=== PATIENT | female | born 1970 | race Caucasian/White ===

== ENCOUNTER 2023-04-06 13:13 | Inpatient (IN) | payer MEDICAID, OTHER ==
[~2023-04-06] VITALS: Ht 162.6 cm; Wt 98.9 kg
[~2023-04-06 13:13] MED LIST: METO25XL PO; NIFE-64 PO; PALI6TAB15 PO
[2023-04-06] MEDS ORDERED: LORazepam 2 MG/ML VIAL IM ONE (13:45)
[2023-04-06] MEDS ORDERED: HALOPERIDOL LACTATE 5 MG/ML VIAL IM ONE (13:45)
[2023-04-06] MEDS ORDERED: DiphenhydrAMINE HCL 50 MG/ML VIAL IM ONE (13:45)
[2023-04-06] MEDS ORDERED: METO-408 PO (13:48)
[2023-04-06] MEDS ORDERED: NIFE-129 PO (13:48)
[2023-04-06 14:00] LABS: BASOPHILS % (AUTO) 0.8 % (0.0-2.0); EOSINOPHILS % (AUTO) 3.1 % (1.0-6.0); HEMATOCRIT 36.9 % (36-46); HEMOGLOBIN 12.3 g/dL (12.0-16.0); LYMPHOCYTES # (AUTO) 3.3 K/uL (1.0-4.8); LYMPHOCYTES % (AUTO) 30.8 % (22.0-44.0); MEAN CORPUSCULAR HEMOGLOBIN 29.6 pg (26.0-34.0); MEAN CORPUSCULAR HGB CONC 33.2 G/dL (31.0-37.0); MEAN CORPUSCULAR VOLUME 89 fL (80-100); MONOCYTES # (AUTO) 0.7 K/uL (0.1-1.0); MONOCYTES % (AUTO) 6.3 % (2.0-9.0); NEUTROPHILS # (AUTO) 6.2 K/uL (1.8-7.7); PLATELET COUNT (AUTO) 363 K/uL (150-450); RED BLOOD CELL COUNT(AUTO) 4.14 MIL/uL (4.00-5.20); RED CELL DISTRIBUTION WIDTH 13.4 % (11.5-14.5)
[2023-04-06 14:09] LABS: CALCIUM, TOTAL 8.8 mg/dL (8.8-10.5); CREATININE 1.28 mg/dL (0.60-1.30); POTASSIUM 3.2 mmol/L (3.5-5.1)
[2023-04-06 14:15] LABS: ALBUMIN 3.4 g/dL (3.4-5.0); BILIRUBIN,TOTAL 0.3 mg/dL (0.1-1.0); TOTAL PROTEIN, SERUM 7.6 g/dL (6.4-8.2)
[2023-04-06 15:10] LABS: COVID AG,FIA SOURCE NASOPHARYNGEAL
[2023-04-06] MEDS ORDERED: HALOPERIDOL 5 MG TABLET PO PRN (15:45)
[2023-04-06 22:11] VITALS: BP 187/99; PULSE 77; RESP 18; TEMP 97.7; O2SAT 94
[2023-04-06] MEDS ORDERED: NIFEdipine 60 MG ER TABLET PO ONE (22:15)
[2023-04-06] MEDS ORDERED: METOPROLOL SUCCINATE 25 MG ER TABLET PO ONE (22:15)
[2023-04-07] MEDS ORDERED: POTASSIUM CHLORIDE 20 MEQ ER TABLET PO ONE (06:00)
[2023-04-07] MEDS ORDERED: MAG HYDROX/AL HYDROX/SIMETH ES 30 ML SUSPENSION UDCUP PO PRN (06:00)
[2023-04-07] MEDS ORDERED: DOCUSATE SODIUM 100 MG CAPSULE PO PRN (06:00)
[2023-04-07] MEDS ORDERED: ONDANSETRON HCL 4 MG TABLET PO PRN (06:00)
[2023-04-07] MEDS ORDERED: ACETAMINOPHEN 325 MG TABLET PO PRN (06:00)
[2023-04-07] MEDS ORDERED: IBUPROFEN 600 MG TABLET PO PRN (06:00)
[2023-04-07] MEDS ORDERED: BENZOCAINE/MENTHOL LOZENGE PO PRN (06:00)
[2023-04-07] MEDS ORDERED: BACITRACIN 28 GM OINTMENT TP PRN (06:00)
[2023-04-07] MEDS ORDERED: ALBUTEROL SULFATE HFA 90 MCG/PUFF 8 GM INHALER IH PRN (06:00)
[2023-04-07] MEDS ORDERED: LOPERAMIDE HCL 2 MG CAPSULE PO PRN (06:00)
[2023-04-07] MEDS ORDERED: OMEPRAZOLE 20 MG CAPSULE PO PRN (06:00)
[2023-04-07] MEDS ORDERED: MAGNESIUM HYDROXIDE SUSPENSION 30 ML UDCUP PO PRN (06:00)
[2023-04-07] MEDS ORDERED: CloNIDine HCL 0.1 MG TABLET PO PRN (06:00)
[2023-04-07] MEDS ORDERED: PETROLATUM,WHITE 28 GM JELLY TP PRN (06:00)
[2023-04-07 06:24] VITALS: BP 156/72; PULSE 85; RESP 18; TEMP 97.8; O2SAT 15
[2023-04-07 08:19] VITALS: RESP 16
[2023-04-07 10:31] VITALS: BP 136/82; RESP 17
[2023-04-07] MEDS: NIFEdipine 60 MG ER TABLET PO SCH (10:32)
[2023-04-07] MEDS: METOPROLOL SUCCINATE 25 MG ER TABLET PO SCH (10:32)
[2023-04-07 20:03] VITALS: RESP 17
[2023-04-07] MEDS: RisperiDONE 2 MG TABLET PO SCH (21:00)
[2023-04-08] MEDS: RisperiDONE 2 MG TABLET PO SCH ×2 (07:55→20:38)
[2023-04-08] MEDS: NIFEdipine 60 MG ER TABLET PO SCH (07:55)
[2023-04-08] MEDS: METOPROLOL SUCCINATE 25 MG ER TABLET PO SCH (07:55)
[2023-04-08 08:33] VITALS: BP 161/75; PULSE 85; RESP 18; TEMP 98.6; O2SAT 98
[2023-04-08] MEDS ORDERED: LORazepam 2 MG/ML VIAL ONE (09:26)
[2023-04-08] MEDS ORDERED: HALOPERIDOL LACTATE 5 MG/ML VIAL ONE (09:27)
[2023-04-08] MEDS ORDERED: DiphenhydrAMINE HCL 50 MG/ML VIAL IM ONE (09:30)
[2023-04-08] MEDS ORDERED: HALOPERIDOL LACTATE 5 MG/ML VIAL IM ONE (09:30)
[2023-04-08] MEDS ORDERED: LORazepam 2 MG/ML VIAL IM ONE (09:30)
[2023-04-08 20:49] VITALS: BP 112/77; PULSE 93; RESP 19; TEMP 98; O2SAT 96
[2023-04-09] MEDS: METOPROLOL SUCCINATE 25 MG ER TABLET PO SCH (08:28)
[2023-04-09] MEDS: NIFEdipine 60 MG ER TABLET PO SCH (08:28)
[2023-04-09] MEDS: RisperiDONE 2 MG TABLET PO SCH ×2 (08:28→20:19)
[2023-04-09 08:50] VITALS: BP 122/80; PULSE 76; RESP 16; TEMP 97.8; O2SAT 98
[2023-04-09] MEDS ORDERED: DiphenhydrAMINE HCL 25 MG CAPSULE PO PRN (12:15)
[2023-04-09] MEDS: ESCITALOPRAM OXALATE 10 MG TABLET PO SCH (12:15)
[2023-04-09] MEDS ORDERED: HALOPERIDOL LACTATE 5 MG/ML VIAL ONE (16:01)
[2023-04-09] MEDS ORDERED: DiphenhydrAMINE HCL 50 MG/ML VIAL ONE (16:01)
[2023-04-09] MEDS ORDERED: LORazepam 2 MG/ML VIAL ONE (16:01)
[2023-04-09] MEDS ORDERED: LORazepam 2 MG/ML VIAL IM ONE (16:15)
[2023-04-09] MEDS ORDERED: DiphenhydrAMINE HCL 50 MG/ML VIAL IM ONE (16:15)
[2023-04-09] MEDS ORDERED: HALOPERIDOL LACTATE 5 MG/ML VIAL IM ONE (16:15)
[2023-04-09 20:03] VITALS: RESP 17
[2023-04-09] MEDS: ZOLPIDEM TARTRATE 10 MG TABLET PO PRN (20:19)
[2023-04-10 08:08] VITALS: BP 158/104; PULSE 86; RESP 18; TEMP 97.6; O2SAT 98
[2023-04-10] MEDS: ESCITALOPRAM OXALATE 10 MG TABLET PO SCH (08:08)
[2023-04-10] MEDS: METOPROLOL SUCCINATE 25 MG ER TABLET PO SCH (08:08)
[2023-04-10] MEDS: NIFEdipine 60 MG ER TABLET PO SCH (08:08)
[2023-04-10] MEDS: RisperiDONE 2 MG TABLET PO SCH ×2 (08:08→20:14)
[2023-04-10] MEDS: ZOLPIDEM TARTRATE 10 MG TABLET PO PRN (20:14)
[2023-04-10 21:15] VITALS: BP 132/86; PULSE 80; RESP 16; TEMP 97.3; O2SAT 96
[2023-04-11 08:12] VITALS: BP 141/99; PULSE 96; RESP 17; TEMP 97.3; O2SAT 96
[2023-04-11] MEDS: NIFEdipine 60 MG ER TABLET PO SCH (08:13)
[2023-04-11] MEDS: RisperiDONE 2 MG TABLET PO SCH ×2 (08:13→20:07)
[2023-04-11] MEDS: ESCITALOPRAM OXALATE 10 MG TABLET PO SCH (08:13)
[2023-04-11] MEDS: METOPROLOL SUCCINATE 25 MG ER TABLET PO SCH (08:13)
[2023-04-11] MEDS ORDERED: DiphenhydrAMINE HCL 25 MG CAPSULE PO PRN (10:45)
[2023-04-11] MEDS: ZOLPIDEM TARTRATE 10 MG TABLET PO PRN (20:12)
[2023-04-11 20:22] VITALS: BP 160/86; PULSE 78; RESP 16; TEMP 97.7; O2SAT 98
[2023-04-12] MEDS: NIFEdipine 60 MG ER TABLET PO SCH (08:13)
[2023-04-12] MEDS: RisperiDONE 2 MG TABLET PO SCH ×2 (08:13→20:04)
[2023-04-12] MEDS: ESCITALOPRAM OXALATE 10 MG TABLET PO SCH (08:13)
[2023-04-12] MEDS: METOPROLOL SUCCINATE 25 MG ER TABLET PO SCH (08:13)
[2023-04-12 08:21] VITALS: BP 149/81; PULSE 77; RESP 16; TEMP 98.6; O2SAT 96
[2023-04-12 16:48] VITALS: BP 164/98; PULSE 70; RESP 18; TEMP 96.3; O2SAT 98
[2023-04-12 18:32] VITALS: RESP 18; O2SAT 98
[2023-04-12 20:41] VITALS: BP 164/94; PULSE 73; RESP 19; TEMP 97.8; O2SAT 98
[2023-04-12] MEDS: ZOLPIDEM TARTRATE 10 MG TABLET PO PRN (23:00)
[2023-04-13] MEDS: ESCITALOPRAM OXALATE 10 MG TABLET PO SCH (08:16)
[2023-04-13] MEDS: RisperiDONE 2 MG TABLET PO SCH ×2 (08:17→20:23)
[2023-04-13] MEDS: METOPROLOL SUCCINATE 25 MG ER TABLET PO SCH (08:17)
[2023-04-13] MEDS: NIFEdipine 60 MG ER TABLET PO SCH (08:18)
[2023-04-13 08:35] VITALS: BP 135/82; PULSE 82; RESP 16; TEMP 97.9; O2SAT 97
[2023-04-13] MEDS: LORazepam 2 MG TABLET PO PRN ×2 (14:57→20:24)
[2023-04-13] MEDS: ZOLPIDEM TARTRATE 10 MG TABLET PO PRN (20:23)
[2023-04-13 23:00] VITALS: RESP 18; TEMP 97.9
[2023-04-14] MEDS: LORazepam 2 MG TABLET PO PRN (08:27)
[2023-04-14] MEDS: METOPROLOL SUCCINATE 25 MG ER TABLET PO SCH (08:27)
[2023-04-14] MEDS: RisperiDONE 2 MG TABLET PO SCH ×2 (08:27→20:04)
[2023-04-14] MEDS: NIFEdipine 60 MG ER TABLET PO SCH (08:27)
[2023-04-14] MEDS: ESCITALOPRAM OXALATE 10 MG TABLET PO SCH (08:27)
[2023-04-14 08:36] VITALS: BP 136/70; PULSE 76; RESP 16; TEMP 97.9; O2SAT 95
[2023-04-14] MEDS: ZOLPIDEM TARTRATE 10 MG TABLET PO PRN (20:20)
[2023-04-14 20:33] VITALS: BP 141/84; PULSE 100; RESP 18; TEMP 98
[2023-04-15] MEDS: NIFEdipine 60 MG ER TABLET PO SCH (08:13)
[2023-04-15] MEDS: METOPROLOL SUCCINATE 25 MG ER TABLET PO SCH (08:13)
[2023-04-15] MEDS: ESCITALOPRAM OXALATE 10 MG TABLET PO SCH (08:13)
[2023-04-15] MEDS: RisperiDONE 2 MG TABLET PO SCH ×2 (08:13→20:05)
[2023-04-15 08:25] VITALS: BP 117/68; PULSE 80; RESP 16; TEMP 97.9; O2SAT 95
[2023-04-15 20:03] VITALS: BP 144/81; PULSE 97; RESP 17; TEMP 97.5
[2023-04-15] MEDS: ZOLPIDEM TARTRATE 10 MG TABLET PO PRN (20:05)
[2023-04-16] MEDS: RisperiDONE 2 MG TABLET PO SCH (08:11)
[2023-04-16] MEDS: METOPROLOL SUCCINATE 25 MG ER TABLET PO SCH (08:11)
[2023-04-16] MEDS: ESCITALOPRAM OXALATE 10 MG TABLET PO SCH (08:11)
[2023-04-16] MEDS: NIFEdipine 60 MG ER TABLET PO SCH (08:16)
[2023-04-16 08:23] VITALS: BP 129/64; PULSE 78; RESP 16; TEMP 97.5; O2SAT 97
[2023-04-16] MEDS ORDERED: METO25XL PO (14:28)
[2023-04-16] MEDS ORDERED: ESCI-8 PO (14:28)
[2023-04-16] MEDS ORDERED: NIFE-129 PO (14:28)
[2023-04-16] MEDS ORDERED: RISP2TAB86 PO (14:28)
== END 2023-04-16 16:28 | disposition home or self-care (01) | DRG 750 ==
LOC: EMS 13:17 → B3A 18:41
PROVIDERS: ADMIT Psychiatry & Neurology Child & Adolescent Psychiatry; ATTEND Psychiatry & Neurology Child & Adolescent Psychiatry
DX: F25.9 Schizoaffective disorder, unspecified (principal); R45.850 Homicidal ideations; R45.851 Suicidal ideations; E66.9 Obesity, unspecified; F31.9 Bipolar disorder, unspecified; F41.9 Anxiety disorder, unspecified; Z20.822 Contact with and (suspected) exposure to COVID-19; G47.00 Insomnia, unspecified; G89.29 Other chronic pain; I10 Essential (primary) hypertension; F12.90 Cannabis use, unspecified, uncomplicated; K59.00 Constipation, unspecified; F17.210 Nicotine dependence, cigarettes, uncomplicated; Z91.148 Patient's other noncompliance with medication regimen for other reason; Z88.8 Allergy status to other drugs, medicaments and biological substances
CPT/HCPCS: 80053; 84132; 85025; 99291; G0480; J1200; J1630; J2060

== ENCOUNTER 2024-01-13 16:38 | Emergency (ER) | payer MEDICAID, OTHER ==
[~2024-01-13] VITALS: Ht 162.6 cm; Wt 100.0 kg
[~2024-01-13 16:38] MED LIST changes: +ESCI-8 PO; +NIFE-129 PO; -NIFE-64 PO; -PALI6TAB15 PO; +RISP-32 PO
[2024-01-13 16:41] VITALS: TEMP 98.8
[2024-01-13] MEDS: DiphenhydrAMINE HCL 25 MG CAPSULE PO ONE (17:52)
[2024-01-13] MEDS: OLANZapine 10 MG TABLET PO ONE (17:53)
[2024-01-13] MEDS ORDERED: DIPH50CA37 PO (17:56)
[2024-01-13 18:07] VITALS: BP 133/84; PULSE 79; RESP 16
== END 2024-01-13 18:30 | disposition home or self-care (01) ==
LOC: EMS 16:38
DX: I10 Essential (primary) hypertension (principal); F17.210 Nicotine dependence, cigarettes, uncomplicated; Z88.8 Allergy status to other drugs, medicaments and biological substances
CPT/HCPCS: 99283

== ENCOUNTER 2024-12-27 20:51 | Emergency (ER) | payer OTHER ==
[~2024-12-27] VITALS: Ht 157.5 cm; Wt 114.5 kg
[~2024-12-27 20:51] MED LIST changes: +DIPH50CA37 PO
[2024-12-27 21:01] VITALS: TEMP 98.9
[2024-12-27 21:41] LABS: BASOPHILS % (AUTO) 0.9 % (0.0-2.0); HEMATOCRIT 38.5 % (36-46); HEMOGLOBIN 12.5 g/dL (12.0-16.0); LYMPHOCYTES # (AUTO) 3.4 K/uL (1.0-4.8); LYMPHOCYTES % (AUTO) 27.7 % (22.0-44.0); MEAN CORPUSCULAR HGB CONC 32.6 G/dL (31.0-37.0); MEAN CORPUSCULAR VOLUME 89 fL (80-100); MONOCYTES # (AUTO) 1.4 K/uL (0.1-1.0); MONOCYTES % (AUTO) 11.3 % (2.0-9.0); NEUTROPHILS # (AUTO) 7.2 K/uL (1.8-7.7); NEUTROPHILS % (AUTO) 58.1 % (40.0-70.0); PLATELET COUNT (AUTO) 343 K/uL (150-450); RED BLOOD CELL COUNT(AUTO) 4.33 MIL/uL (4.00-5.20); RED CELL DISTRIBUTION WIDTH 13.8 % (11.5-14.5); WHITE BLOOD COUNT (AUTO) 12.4 K/uL (4.5-11.0)
[2024-12-27 21:51] LABS: ANION GAP 11 mmol/L (8-16); CALCIUM, TOTAL 9.2 mg/dL (8.8-10.5); CARBON DIOXIDE 25 mmol/L (22-29); CHLORIDE 97 mmol/L (98-107); CREATININE 1.19 mg/dL (0.60-1.30); GLOMERULAR FILTR. RATE CALC 47 mL/min (>60); GLUCOSE,RANDOM 97 mg/dL (70-110); POTASSIUM 3.4 mmol/L (3.5-5.1); SODIUM SERUM 133 mmol/L (136-145); UREA NITROGEN, BLOOD 18 mg/dL (7-18)
[2024-12-27 21:59] LABS: LACTIC ACID 1.8 mmol/L (0.4-2.0)
[2024-12-27] MEDS: CLINDAMYCIN PHOS 150 MG/ML 4 ML VIAL IM ONE (22:47)
[2024-12-27] MEDS: ACETAMINOPHEN 325 MG TABLET PO ONE (23:03)
[2024-12-27 23:05] VITALS: BP 128/97; PULSE 74; RESP 18; O2SAT 96
== END 2024-12-28 01:00 | disposition left against medical advice (07) ==
LOC: EMS 20:51
DX: S93.402A Sprain of unspecified ligament of left ankle, initial encounter (principal); L03.116 Cellulitis of left lower limb; F31.9 Bipolar disorder, unspecified; F20.9 Schizophrenia, unspecified; I10 Essential (primary) hypertension; F17.210 Nicotine dependence, cigarettes, uncomplicated; Z79.899 Other long term (current) drug therapy; Z88.8 Allergy status to other drugs, medicaments and biological substances; X50.1XXA Overexertion from prolonged static or awkward postures, initial encounter; Y93.89 Activity, other specified; Y92.89 Other specified places as the place of occurrence of the external cause; Y99.8 Other external cause status
CPT/HCPCS: 99284; 80048; 83605; 85025; 36415; 73610; 96372; J3490

== ENCOUNTER 2025-08-08 02:43 | Emergency (ER) | payer OTHER ==
[~2025-08-08] VITALS: Ht 162.6 cm; Wt 100.0 kg
[2025-08-08 02:57] VITALS: BP 138/91; PULSE 95; RESP 16; TEMP 98.6; O2SAT 98
[2025-08-08] MEDS ORDERED: AMOX250C4 PO (04:42)
[2025-08-08] MEDS ORDERED: BENZ-227 PO (04:42)
[2025-08-08] MEDS: ACETAMINOPHEN 500 MG TABLET PO ONE (04:44)
== END 2025-08-08 04:53 | disposition home or self-care (01) ==
LOC: EMS 02:43
DX: H92.02 Otalgia, left ear (principal); J06.9 Acute upper respiratory infection, unspecified; R05.9 Cough, unspecified; R09.81 Nasal congestion; J00 Acute nasopharyngitis [common cold]; F20.9 Schizophrenia, unspecified; F31.9 Bipolar disorder, unspecified; I10 Essential (primary) hypertension; F17.210 Nicotine dependence, cigarettes, uncomplicated; Z88.8 Allergy status to other drugs, medicaments and biological substances; Z79.899 Other long term (current) drug therapy
CPT/HCPCS: 99282; Z7502; Z7610

== ENCOUNTER 2025-09-24 19:08 | Emergency (ER) | payer OTHER ==
[~2025-09-24] VITALS: Ht 162.6 cm; Wt 109.1 kg
[~2025-09-24 19:08] MED LIST changes: +AMOX250C4 PO; +BENZ-227 PO
[2025-09-24] MEDS: LIDOCAINE 2% VISCOUS 15 ML SOLUTION UDCUP PO ONE (19:49)
[2025-09-24 19:54] VITALS: TEMP 98
[2025-09-24] MEDS ORDERED: [UNRECOGNIZED DRUG - CODE] AS (19:58)
[2025-09-24] MEDS: IBUPROFEN 600 MG TABLET PO ONE (19:59)
[2025-09-24 20:12] VITALS: BP 153/97; PULSE 98; RESP 20; O2SAT 97
== END 2025-09-24 20:16 | disposition home or self-care (01) ==
LOC: EMS 19:08
DX: T16.2XXA Foreign body in left ear, initial encounter (principal); I10 Essential (primary) hypertension; F31.9 Bipolar disorder, unspecified; F20.9 Schizophrenia, unspecified; F17.210 Nicotine dependence, cigarettes, uncomplicated; Z88.8 Allergy status to other drugs, medicaments and biological substances; Z79.899 Other long term (current) drug therapy; W44.9XXA Unspecified foreign body entering into or through a natural orifice, initial encounter; Y93.89 Activity, other specified; Y92.89 Other specified places as the place of occurrence of the external cause; Y99.8 Other external cause status
CPT/HCPCS: 69200; 99284; Z7502; Z7610